=== PATIENT | female | born 1995 | race Caucasian/White ===

== ENCOUNTER 2017-12-24 17:35 | Emergency (ER) | payer OTHER | END 2017-12-24 18:53 | disposition short-term general hospital (02) | LOC: NAV ERS 17:35 | DX: O42.92 Full-term premature rupture of membranes, unspecified as to length of time between rupture and onset of labor (principal); Z3A.37 37 weeks gestation of pregnancy | CPT/HCPCS: 99284 ==

== ENCOUNTER 2018-02-18 06:16 | Emergency (ER) | payer OTHER ==
[2018-02-18] MEDS ORDERED: Lidocaine 1% 20 ML MDV ONE (06:41)
[2018-02-18] MEDS ORDERED: Sulfameth/Trimethoprim DS 800-160mg TAB ONE ×2 (07:21→07:24)
[2018-02-18] MEDS ORDERED: Adacel (T-DAP) 0.5 ML VIAL ONE (07:21)
== END 2018-02-18 07:35 | disposition home or self-care (01) ==
LOC: NAV ERS 06:16
DX: L02.411 Cutaneous abscess of right axilla (principal); L02.412 Cutaneous abscess of left axilla
CPT/HCPCS: 10060; 87070; 87077; 87186; 87205; 90471; 90715; J2001

== ENCOUNTER 2018-03-24 06:20 | Emergency (ER) | payer OTHER ==
--- NOTE | 2018-03-24 08:10 | RAD ---
RIGHT HAND 3 VIEWS: Date: 03/24/18 HISTORY: 22-year-old male with history of right hand injury after punching a wall yesterday. FINDINGS: Irregular, possibly very slightly comminuted fracture of the distal fifth metacarpal with prominent v olar angulation and overlying soft tissue swelling. IMPRESSION: Distal fifth metacarpal fracture with volar angulation and soft tissue swelling. POS: TRIP
== END 2018-03-24 07:30 | disposition home or self-care (01) ==
LOC: NAV ERS 06:20
DX: S62.336A Displaced fracture of neck of fifth metacarpal bone, right hand, initial encounter for closed fracture (principal); W22.01XA Walked into wall, initial encounter
CPT/HCPCS: 29125

== ENCOUNTER 2018-07-25 09:31 | Emergency (ER) | payer MEDICAID, SELFPAY ==
[2018-07-25 10:27] LABS: BHCG - Serum POSITIVE (NEGATIVE)
[2018-07-25 10:28] LABS: Pregs Control Bar Appear? YES (CONTROL BAR)
[2018-07-25 10:36] LABS: Band 1 % (5-11); Eosinophils 2 % (0-10); Hemoglobin 11.3 g/dL (12.0-16.0); Lymphocytes 20 % (21-51); MDiff Complete? YES; Mean Corpuscular HGB CONC 31.7 g/dL (32.0-36.0); Mean Corpuscular Hemoglobin 28.5 pg (27.0-31.0); Mean Corpuscular Volume 89.9 fL (78.0-98.0); Mean Platelet Volume 8.3 fL (7.4-10.4); Monocytes 9 % (0-10); Neutrophil 68 % (42-75); Platelet Count 222 thou/uL (130-400); Platelet Morphology Comment Appears Adequate; RBC Distribution Width 11.5 % (11.5-14.5); Red Blood Cell (RBC) Count 3.98 mill/uL (4.20-5.40); White Blood Cell (WBC) Count 5.7 thou/uL (4.8-10.8)
== END 2018-07-25 11:32 | disposition short-term general hospital (02) ==
LOC: NAV ERS 09:31
DX: O20.9 Hemorrhage in early pregnancy, unspecified (principal); Z3A.01 Less than 8 weeks gestation of pregnancy
CPT/HCPCS: 84702; 84703; 85025; 99284

== ENCOUNTER 2018-10-08 17:04 | Emergency (ER) | payer MEDICAID | END 2018-10-08 17:45 | disposition home or self-care (01) | LOC: NAV ERS 17:04 | DX: H10.9 Unspecified conjunctivitis (principal) | CPT/HCPCS: 99282 ==

== ENCOUNTER 2020-02-02 04:21 | Emergency (ER) | payer OTHER, SELFPAY ==
[2020-02-02 05:03] LABS: #Basophils 0.1 thou/uL (0.0-0.2); #Eosinphils 0.1 thou/uL (0.0-0.7); #Lymphocytes 1.8 thou/uL (1.20-3.40); #Monocytes 0.7 thou/uL (0.11-0.59); #Neutrophils 5.7 thou/uL (1.40-6.50); %Basophils 0.6 % (0.0-1.0); %Eosinophils 1.4 % (0.0-10.0); %Lymphocytes 21.4 % (21.0-51.0); %Monocytes 8.4 % (0.0-10.0); %Neutrophils 68.2 % (42.0-75.0); Hemoglobin 9.3 g/dL (12.0-16.0); Mean Corpuscular HGB CONC 31.4 g/dL (32.0-36.0); Mean Corpuscular Hemoglobin 28.8 pg (27.0-31.0); Mean Corpuscular Volume 91.5 fL (78.0-98.0); Mean Platelet Volume 9.4 fL (7.4-10.4); Platelet Count 179 thou/uL (130-400); RBC Distribution Width 11.4 % (11.5-14.5); Red Blood Cell (RBC) Count 3.22 mill/uL (4.20-5.40); White Blood Cell (WBC) Count 8.4 thou/uL (4.8-10.8)
[2020-02-02 05:17] LABS: ALT (SGPT) 7 U/L (8-55); AST (SGOT) 12 U/L (5-34); Albumin 3.4 g/dL (3.5-5.0); Alkaline Phosphatase 95 U/L (40-110); Anion Gap 12 mmol/L (10-20); BUN (Urea Nitrogen) 10 mg/dL (7.0-18.7); Bilirubin, Total 0.5 mg/dL (0.2-1.2); Calc. Creatinine Clearance 0 mL/min (70-130); Calcium 8.5 mg/dL (7.8-10.44); Carbon Dioxide 20 mmol/L (22-29); Chloride 107 mmol/L (98-107); Estimated GFR-MDRD Greater than 90; Glucose 88 mg/dL (70-105); Potassium 3.5 mmol/L (3.5-5.1); Protein, Total 6.4 g/dL (6.0-8.3); Sodium 135 mmol/L (136-145)
== END 2020-02-02 05:26 | disposition short-term general hospital (02) ==
LOC: NAV ERS 04:21 → EEVIPCON 04:21 → NAV ERS 05:26
DX: O20.9 Hemorrhage in early pregnancy, unspecified (principal); Z87.891 Personal history of nicotine dependence; Z3A.33 33 weeks gestation of pregnancy
CPT/HCPCS: 80053; 85025; 99284

== ENCOUNTER 2020-12-02 07:34 | Emergency (ER) | payer OTHER | END 2020-12-02 08:25 | disposition home or self-care (01) | LOC: NAV ERS 07:34 | DX: L02.412 Cutaneous abscess of left axilla (principal) | CPT/HCPCS: 99283 ==